=== PATIENT | male | born 1955 | race Caucasian/White ===

== ENCOUNTER 2022-07-19 09:57 | Outpatient (CLI) | payer OTHER | END 2022-07-19 10:19 | disposition home or self-care (01) | LOC: SONOGRAMA 09:57 | PROVIDERS: ATTEND Urology | DX: N40.0 Benign prostatic hyperplasia without lower urinary tract symptoms (principal); N31.1 Reflex neuropathic bladder, not elsewhere classified ==

== ENCOUNTER 2024-08-01 15:06 | Outpatient (CLI) | payer OTHER | END 2024-08-01 15:16 | disposition home or self-care (01) | LOC: SONOGRAMA 15:06 | PROVIDERS: ATTEND Urology | DX: R31.1 Benign essential microscopic hematuria (principal); R33.9 Retention of urine, unspecified ==